=== PATIENT | female | born 1960 | race Caucasian/White ===

== ENCOUNTER 2023-05-11 05:09 | Emergency (ER) | payer OTHER ==
[~2023-05-11] VITALS: Ht 157.5 cm; Wt 109.1 kg
[2023-05-11 05:20] VITALS: BP 149/93; PULSE 77; RESP 20; TEMP 98.1
[2023-05-11 06:37] VITALS: O2SAT 98
[2023-05-11] MEDS ORDERED: METH-1182 PO (06:42)
[2023-05-11] MEDS ORDERED: IBUP-1456 PO (06:42)
[2023-05-11] MEDS: HYDROcodone-ACET 5/325MG TAB PO ONE (06:47)
[2023-05-11] MEDS: KETOROLAC TROMETH 60MG/2ML VIAL IM ONE (06:48)
== END 2023-05-11 07:12 | disposition home or self-care (01) ==
LOC: ER 05:09
DX: M50.10 Cervical disc disorder with radiculopathy, unspecified cervical region (principal); M62.838 Other muscle spasm; Z79.899 Other long term (current) drug therapy
CPT/HCPCS: 72040; 96372; 99283; J1885

== ENCOUNTER → 2023-06-01 | Outpatient (CLI) | payer OTHER ==
[~2023-06-01] MED LIST: IBUP-1456 PO; METH-1182 PO
[2023-06-01 09:11] LABS: Basophils # (auto) 0.1 10 ^3/uL (0-0.2); Basophils % (auto) 1.2 % (0.0-2.0); Eosinophils # (auto) 0.2 10 ^3/uL (0-0.8); Eosinophils % (auto) 2.5 % (0.0-7.0); Hematocrit 41.8 % (36.0-46.0); Hemoglobin 13.5 g/dL (12.2-16.2); Lymphocytes # (auto) 2.2 10 ^3/uL (0.4-5.4); Lymphocytes % (auto) 24.7 % (10.0-50.0); Mean Corpuscular Hemoglobin 28.3 pg (28.0-32.0); Mean Corpuscular Hgb Conc. 32.3 g/dL (32.0-36.0); Mean Corpuscular Volume 87.7 fL (80.0-100.0); Monocytes # (auto) 0.6 10 ^3/uL (0-1.3); Monocytes % (auto) 7.3 % (0.0-12.0); Neutrophils # (auto) 5.6 10 ^3/uL (1.6-8.6); Neutrophils % (auto) 64.3 % (37.0-80.0); Nucleated Red Blood Cells % 0.1 %; Red Blood Cells 4.77 10^6/uL (4.0-5.20); Red Cell Distribution Width 14.4 % (11.8-14.3); White Blood Cell 8.8 10^3/uL (4.4-10.8)
[2023-06-01 09:17] LABS: Urine Bacteria FEW /hpf (None Seen); Urine Blood Negative /uL (Negative); Urine Clarity Clear (Clear); Urine Color Light-Yellow (Yellow); Urine Hyaline Cast FEW /lpf (0 - 2); Urine Protein, UAD Negative (Negative); Urine Specific Gravity 1.019 (1.001-1.035); Urine Urobilinogen Normal (Negative); Urine WBC 2 /hpf (0 - 5); Urine pH 6.5 (5.0-9.0)
[2023-06-01 09:36] LABS: Alanine Aminotransferase 15 U/L (7-40); Albumin 4.4 g/dL (3.2-4.8); Alkaline Phosphatase 130 U/L (46-116); Anion Gap 5 (5-15); Aspartate Aminotransferase 16 U/L (13-40); BUN/Creatinine Ratio 16.2 (10.0-20.0); Blood Urea Nitrogen 12 mg/dL (9-23); Calcium 9.5 mg/dL (8.5-10.1); Carbon Dioxide 29 mmol/L (20-30); Chloride 107 mmol/L (98-107); Glucose 103 mg/dL (74-106); LDL Cholesterol 108 mg/dL (< 100); Potassium 4.2 mmol/L (3.5-5.1); Sodium 141 mmol/L (136-145); Triglycerides 105 mg/dL (< 150)
[2023-06-01 09:37] LABS: Bilirubin, Total 0.6 mg/dL (0.2-1.0); Cholesterol 185 mg/dL (< 200); HDL Cholesterol 61 mg/dL (40-59); Total Protein 7.4 g/dL (5.7-8.2)
== END | disposition home or self-care (01) ==
LOC: LAB 08:37
DX: Z12.11 Encounter for screening for malignant neoplasm of colon (principal); Z00.01 Encounter for general adult medical examination with abnormal findings; E78.5 Hyperlipidemia, unspecified; E55.9 Vitamin D deficiency, unspecified
CPT/HCPCS: 36415; 80053; 80061; 81001; 82306; 83036; 84443; 85025

== ENCOUNTER → 2023-06-08 | Outpatient (CLI) | payer OTHER | END | disposition home or self-care (01) | LOC: LAB 07:20 | DX: Z12.11 Encounter for screening for malignant neoplasm of colon (principal); Z00.01 Encounter for general adult medical examination with abnormal findings; E78.5 Hyperlipidemia, unspecified; E55.9 Vitamin D deficiency, unspecified | CPT/HCPCS: 82274 ==

== ENCOUNTER 2023-12-12 06:13 | Inpatient (IN) | payer OTHER ==
[2023-12-09 09:09] LABS: Basophils # (auto) 0.1 10 ^3/uL (0-0.2); Basophils % (auto) 1.5 % (0.0-2.0); Eosinophils # (auto) 0.1 10 ^3/uL (0-0.8); Eosinophils % (auto) 1.9 % (0.0-7.0); Hematocrit 43.4 % (36.0-46.0); Hemoglobin 14.2 g/dL (12.2-16.2); Lymphocytes # (auto) 1.4 10 ^3/uL (0.4-5.4); Lymphocytes % (auto) 17.6 % (10.0-50.0); Mean Corpuscular Hemoglobin 28.8 pg (28.0-32.0); Mean Corpuscular Hgb Conc. 32.8 g/dL (32.0-36.0); Mean Corpuscular Volume 87.9 fL (80.0-100.0); Monocytes # (auto) 0.6 10 ^3/uL (0-1.3); Monocytes % (auto) 7.3 % (0.0-12.0); Neutrophils # (auto) 5.6 10 ^3/uL (1.6-8.6); Neutrophils % (auto) 71.7 % (37.0-80.0); Platelet Count (auto) 263 10^3/uL (140-450); Red Blood Cells 4.93 10^6/uL (4.0-5.20); Red Cell Distribution Width 14.7 % (11.8-14.3); White Blood Cell 7.8 10^3/uL (4.4-10.8)
[2023-12-09 09:11] LABS: Urine Bacteria None Seen /hpf (None Seen)
[2023-12-09 09:25] LABS: Urine Blood Negative /uL (Negative); Urine Clarity Clear (Clear); Urine Color Light-Yellow (Yellow); Urine Protein, UAD Negative (Negative); Urine Specific Gravity 1.019 (1.001-1.035); Urine Urobilinogen Normal (Negative); Urine WBC 1 /hpf (0 - 5); Urine pH 7.5 (5.0-9.0)
[2023-12-09 09:30] LABS: INR 0.97 (0.9-1.15); Partial Thromboplastin Time 31.9 SEC (24.5-34.5); Prothrombin Time 10.3 sec (9.3-11.8)
[2023-12-09 10:07] LABS: Alanine Aminotransferase 15 U/L (7-40); Albumin 4.5 g/dL (3.2-4.8); Alkaline Phosphatase 107 U/L (46-116); Anion Gap 8 (5-15); BUN/Creatinine Ratio 17.3 (10.0-20.0); Blood Urea Nitrogen 13 mg/dL (9-23); Carbon Dioxide 28 mmol/L (20-31); Chloride 104 mmol/L (98-107); Glucose 107 mg/dL (74-106); Potassium 4.3 mmol/L (3.5-5.1); Sodium 140 mmol/L (136-145)
[2023-12-09 10:08] LABS: Bilirubin, Total 0.9 mg/dL (0.2-1.0); Total Protein 7.7 g/dL (5.7-8.2)
[2023-12-09 10:20] LABS: Aspartate Aminotransferase 12 U/L (13-40)
[~2023-12-12] VITALS: Ht 157.5 cm; Wt 122.7 kg
[2023-12-12] VITALS (10 sets, daily range): BP systolic 114–152; BP diastolic 57–81; PULSE 68–102; RESP 12–20; TEMP 97.5–98.7; O2SAT 92–97
[~2023-12-12 06:13] MED LIST changes: +CHOL20007 PO; +IBAN1TAB2 PO; -METH-1182 PO
[2023-12-12] MEDS: ACETAMINOPHEN IV 1000 MG/100ML (10MG/ML) IV ONE (06:45)
[2023-12-12] MEDS: CELECOXIB 100 MG CAP PO ONE (06:45)
[2023-12-12] MEDS: PREGABALIN CAPSULE 75 MG CAP PO ONE (06:45)
[2023-12-12] MEDS: LACTATED RINGER'S 1,000 ML IV SCH (07:15)
[2023-12-12] MEDS ORDERED: HYDROmorphone HCL 2 MG/ML VL/or syr IV PRN (07:15)
[2023-12-12] MEDS ORDERED: NITROGLYCERIN 0.4 MG SL TAB SL PRN (07:15)
[2023-12-12] MEDS ORDERED: HYDROcodone-ACET 5/325MG TAB PO PRN (07:15)
[2023-12-12] MEDS ORDERED: diphenhdrAMINE HCL 25 MG CAP PO PRN (07:15)
[2023-12-12] MEDS ORDERED: ceFAZolin 1GM/50ML 50 ML IV SCH (07:15)
[2023-12-12] MEDS ORDERED: MORPHINE SULFATE INJ 2 MG/ml SYRG IV PRN (07:15)
[2023-12-12] MEDS ORDERED: PROPOFOL 10 MG/ML 20 ML IV ONE ×5 (07:55→10:22)
[2023-12-12] MEDS ORDERED: GLYCOPYRROLATE 0.2 MG/ML 1ML VIAL ONE (07:55)
[2023-12-12] MEDS ORDERED: LIDOCAINE 1% INJ PF 5ML AMP ONE (07:56)
[2023-12-12] MEDS ORDERED: KETOROLAC TROMETH 30 MG/ML 1ML VIAL ONE (07:56)
[2023-12-12] MEDS ORDERED: DexAMETHasone SOD PHOS 10MG/1ML VIAL INJ ONE ×2 (07:56→08:38)
[2023-12-12] MEDS ORDERED: ONDANSETRON HCL 4 MG/2 ML VIAL ONE (07:56)
[2023-12-12] MEDS ORDERED: EPINEPHrine HCL 1 MG/1 ML AMP ONE (07:56)
[2023-12-12] MEDS ORDERED: KETAMINE 50mg/ML 1ml syringe ONE (07:57)
[2023-12-12] MEDS ORDERED: fentaNYL CITRATE 100 MCG/2 ML VL ONE (07:57)
[2023-12-12] MEDS: BUPIVACAINE 0.25% INJ 50ML VIAL ONE (07:58)
[2023-12-12] MEDS: VANCOMYCIN HCL 1000 MG VL XX ONE (07:59)
[2023-12-12] MEDS: CEFEPIME 1GM/ 50ML 50 ML IV ONE ×2 (08:00→09:49)
[2023-12-12] MEDS ORDERED: MORPHINE SULF PF 5 MG/10 ML VIAL ONE (08:04)
[2023-12-12] MEDS ORDERED: ESMOLOL HCL 10 ML IV ONE (09:28)
[2023-12-12] MEDS: ENOXAPARIN SOD 40 MG/0.4 ML SYRINGE SC SCH (09:45)
[2023-12-12] MEDS: TRANEXAMIC ACID 20 ML ONE (09:48)
[2023-12-12] MEDS: VANCOMYCIN HCL 1000 MG VL ONE (09:48)
[2023-12-12] MEDS: KETOROLAC TROMETH 30 MG/ML 1ML VIAL ONE (09:48)
[2023-12-12] MEDS: ceFAZolin 2 GM/D5W100ml 100 ML IV ONE (09:49)
[2023-12-12] MEDS ORDERED: ePHEDrine SULFATE 50 MG/ML AMP IV PRN (10:00)
[2023-12-12] MEDS ORDERED: NALOXONE HCL 0.4 MG/ML VIAL IV PRN (10:00)
[2023-12-12] MEDS ORDERED: hydrALAZINE HCL 20 MG/ML VL IV PRN ×2 (10:00→14:15)
[2023-12-12] MEDS ORDERED: fentaNYL CITRATE 100 MCG/2 ML VL IV PRN (10:00)
[2023-12-12] MEDS ORDERED: FLUMAZENIL 0.1 MG/ML INJ 10ML MDV IV PRN (10:00)
[2023-12-12] MEDS ORDERED: PATIENTS OWN MEDICATION (Cholecalciferol (Vitamin D3) 1 TAB) PO SCH (10:00)
[2023-12-12] MEDS: HYDROmorphone HCL 2 MG/ML VL/or syr IV PRN ×2 (10:11→21:45)
[2023-12-12] MEDS: ONDANSETRON HCL 4 MG/2 ML VIAL IV ONE (10:25)
[2023-12-12] MEDS: HYDROmorphone HCL 2 MG/ML VL/or syr ONE (10:26)
[2023-12-12] MEDS: DOCUSATE SOD 100 MG CAP PO SCH (10:36)
[2023-12-12] MEDS: oxyCODONE HCL 5MG TAB PO ONE (10:36)
[2023-12-12] MEDS: CHOLECALCIFEROL (VITD3) 1,000UNIT=25mCg TAB PO SCH (10:37)
--- NOTE | 2023-12-12 12:00 | DVH ---
CLINICAL INDICATION: S/P SURGERY TECHNIQUE: XY L KNEE 3V XRAY Comparison: None FINDINGS/IMPRESSION: There is no evidence of acute fracture or dislocation. Left total knee arthroplasty. The alignment is anatomical. There is no radiopaque foreign body.
[2023-12-12] MEDS: SODIUM CHLOR 0.9% PF (SALINE LOCK) 10ML VIAL/SYR IV SCH (14:00)
--- NOTE | 2023-12-12 14:16 | DVHHP2 ---
Review of Systems Allergies: Coded Allergies: Amoxicillin (Verified Allergy, Intermediate, Hives, 12/09/23) Cephalexin (Verified Allergy, Intermediate, Hives, 12/09/23) Codeine (Verified Allergy, Intermediate, Hives, 12/09/23) Penicillins (Verified Allergy, Intermediate, Hives, 12/09/23) Phenytoin (Verified Allergy, Intermediate, Hives, 12/09/23) Sulfa Antibiotics (Verified Allergy, Intermediate, Hives, 12/09/23) Tetanus Immune Globulin (Verified Allergy, Intermediate, Hives, 12/09/23) Medications Current Medications Medications Dose Ordered Sig/Tacho Route Start Time Stop Time Status Last Admin Dose Admin Patient Own Medication 1 tab DAILY PO 12/12/23 10:00 Cancel Lactated Ringer's 1,000 ml @ 100 mls/hr Q10H IV 12/12/23 07:15 Sodium Chloride 10 ml Q8HR IV 12/12/23 14:00 Acetaminophen/ Hydrocodone Bitart 1 tab Q4HP PRN PO 12/12/23 07:15 Hold Hydromorphone HCl 1 mg Q2HP PRN IV 12/12/23 07:15 Ondansetron HCl 4 mg Q6HP PRN IV 12/12/23 07:15 Docusate Sodium 100 mg Q12HR PO 12/12/23 10:00 12/12/23 10:36 100 MG Enoxaparin Sodium 40 mg DAILY SC 12/12/23 10:00 Nitroglycerin 0.4 mg Q5MINP PRN SL 12/12/23 07:15 Morphine Sulfate 2 mg Q30M PRN IV 12/12/23 07:15 Diphenhydramine HCl 25 mg Q6HP PRN PO 12/12/23 07:15 Cefepime HCl 50 ml @ 12.5 mls/hr DAILY IV 12/12/23 10:00 12/14/23 13:59 Cholecalciferol 2,000 unit DAILY PO 12/12/23 10:00 12/12/23 10:37 2,000 UNIT Cefazolin Sodium 50 ml @ 50 mls/hr Q6H IV 12/12/23 13:30 12/13/23 02:29 Exam Vital Signs Vital Signs Date Time Temp Pulse Resp B/P (MAP) Pulse Ox O2 Delivery O2 Flow Rate FiO2 12/12/23 12:10 97.5 70 18 152/81 (104) 94 97.5 12/12/23 12:07 Room Air 0 12/12/23 12:07 97 Labs/Xrays Labs Test 12/09/23 08:49 Range/Units White Blood Count 7.8 4.4-10.8 10^3/uL Red Blood Count 4.93 4.0-5.20 10^6/uL Hemoglobin 14.2 12.2-16.2 g/dL Hematocrit 43.4 36.0-46.0 % Mean Corpuscular Volume 87.9 80.0-100.0 fL Mean Corpuscular Hemoglobin 28.8 28.0-32.0 pg Mean Corpuscular Hemoglobin Concent 32.8 32.0-36.0 g/dL Red Cell Distribution Width 14.7 H 11.8-14.3 % Platelet Count 263 140-450 10^3/uL Mean Platelet Volume 8.2 6.9-10.8 fL Neutrophils (%) (Auto) 71.7 37.0-80.0 % Lymphocytes (%) (Auto) 17.6 10.0-50.0 % Monocytes (%) (Auto) 7.3 0.0-12.0 % Eosinophils (%) (Auto) 1.9 0.0-7.0 % Basophils (%) (Auto) 1.5 0.0-2.0 % Neutrophils # (Auto) 5.6 1.6-8.6 10 ^3/uL Lymphocytes # (Auto) 1.4 0.4-5.4 10 ^3/uL Monocytes # (Auto) 0.6 0-1.3 10 ^3/uL Eosinophils # (Auto) 0.1 0-0.8 10 ^3/uL Basophils # (Auto) 0.1 0-0.2 10 ^3/uL Nucleated Red Blood Cells 0.0 % Prothrombin Time 10.3 9.3-11.8 sec Prothrombin Time INR 0.97 0.9-1.15 Activated Partial Thromboplast Time 31.9 24.5-34.5 SEC Urine Color Light-yellow Yellow Urine Clarity Clear Clear Urine pH 7.5 5.0-9.0 Urine Specific [place] 1.019 1.001-1.035 Urine Protein Negative Negative Urine Ketones Negative Negative Urine Blood Negative Negative /uL Urine Nitrite Negative Negative Urine Bilirubin Negative Negative Urine Urobilinogen Normal Negative mg/dL Urine Leukocyte Esterase Negative Negative /uL Urine RBC <1 0 - 4 /hpf Urine WBC 1 0 - 5 /hpf Urine Squamous Epithelial Cells Few <5 /hpf Urine Bacteria None seen None Seen /hpf Urine Glucose Normal Normal mg/dL Sodium Level 140 136-145 mmol/L Potassium Level 4.3 3.5-5.1 mmol/L Chloride Level 104 98-107 mmol/L Carbon Dioxide Level 28 20-31 mmol/L Anion Gap 8 5-15 Blood Urea Nitrogen 13 9-23 mg/dL Creatinine 0.75 0.550-1.02 mg/dL Glomerular Filtration Rate Calc 88 >90 mL/min BUN/Creatinine Ratio 17.3 10.0-20.0 Serum Glucose 107 H 74-106 mg/dL Calcium Level 10.0 8.7-10.4 mg/dL Total Bilirubin 0.9 0.2-1.0 mg/dL Aspartate Amino Transferase (AST) 12 L 13-40 U/L Alanine Aminotransferase (ALT) 15 7-40 U/L Alkaline Phosphatase 107 46-116 U/L Total Protein 7.7 5.7-8.2 g/dL Albumin 4.5 3.2-4.8 g/dL Assessment/Plan Assessment/Plan see dictated note Plan discussed with: Other (rn) Date of Service: Dec 12, 2023 Billing Provider: ANITRA CALVERT MD Common Visit Codes: [id number] INP/OBS CARE (HIGH) ANITRA CALVERT MD Dec 12, 2023 14:16
--- NOTE | 2023-12-12 14:44 | DVHHP ---
ADMIT DATE: 12/12/2023 HISTORY OF PRESENT ILLNESS: The patient is a 63-year-old lady who was admitted after she underwent surgery for DJD of the left knee. The patient at this time denies any significant pain. No chest pain or shortness of breath. No nausea or vomiting. REVIEW OF SYSTEMS: Review of rest of systems are otherwise currently negative. PAST MEDICAL HISTORY: Unclear, but appears to be primarily for osteoporosis. ALLERGIES: Several and listed in the records. SOCIAL HISTORY: The patient lives at home. FAMILY HISTORY: Negative. PHYSICAL EXAMINATION: GENERAL: The patient is asleep, arousable. VITAL SIGNS: Temperature of 97.5, pulse 70 per minute, blood pressure 152/81. SHEENT: Unremarkable. NECK: There is no JVD, no pedal edema. LUNGS: Equal bilaterally. No added sounds. CARDIOVASCULAR: S1, S2 is regular, no murmurs. ABDOMEN: Soft. There is no organomegaly. NEUROLOGIC: Nonfocal. MUSCULOSKELETAL: The left knee is in a dressing. ASSESSMENT AND PLAN: * Morbid obesity. * Questionable hypertension for which she will be placed on p.r.n. hydralazine. * Status post left knee arthroplasty for degenerative joint disease of the knee for which she will be placed on pain medications and physical therapy. MD PARAG Llanos/PRINCESS TID: [id number] RECEIPT: [id number]
[2023-12-12] MEDS: ceFAZolin 1GM/50ML 50 ML IV SCH (16:55)
[2023-12-13 01:00] VITALS: BP 106/61; PULSE 68; RESP 20; TEMP 97.6; O2SAT 92
[2023-12-13 05:00] VITALS: BP 103/55; PULSE 74; RESP 20; TEMP 97.8; O2SAT 93
[2023-12-13 06:06] LABS: Basophils # (auto) 0 10 ^3/uL (0-0.2); Basophils % (auto) 0.1 % (0.0-2.0); Eosinophils # (auto) 0 10 ^3/uL (0-0.8); Hematocrit 36.6 % (36.0-46.0); Hemoglobin 11.8 g/dL (12.2-16.2); Lymphocytes # (auto) 1.2 10 ^3/uL (0.4-5.4); Lymphocytes % (auto) 10.2 % (10.0-50.0); Mean Corpuscular Hemoglobin 28.5 pg (28.0-32.0); Mean Corpuscular Hgb Conc. 32.4 g/dL (32.0-36.0); Monocytes % (auto) 8.1 % (0.0-12.0); Neutrophils # (auto) 9.9 10 ^3/uL (1.6-8.6); Neutrophils % (auto) 81.6 % (37.0-80.0); Nucleated Red Blood Cells % 0.1 %; Platelet Count (auto) 258 10^3/uL (140-450); Red Blood Cells 4.16 10^6/uL (4.0-5.20); White Blood Cell 12.1 10^3/uL (4.4-10.8)
[2023-12-13 06:18] LABS: Alanine Aminotransferase 14 U/L (7-40); Albumin 3.6 g/dL (3.2-4.8); Alkaline Phosphatase 95 U/L (46-116); Anion Gap 8 (5-15); Aspartate Aminotransferase 13 U/L (13-40); BUN/Creatinine Ratio 19.2 (10.0-20.0); Bilirubin, Total 0.4 mg/dL (0.2-1.0); Blood Urea Nitrogen 15 mg/dL (9-23); Calcium 9.1 mg/dL (8.7-10.4); Carbon Dioxide 24 mmol/L (20-31); Chloride 105 mmol/L (98-107); Glucose 177 mg/dL (74-106); Potassium 4.3 mmol/L (3.5-5.1); Sodium 137 mmol/L (136-145)
--- NOTE | 2023-12-13 07:46 | DVHPN2 ---
Progress Note Date Seen: Dec 13, 2023 Medical Necessity Reason Pt with a Central, PICC or Fol: No Subjective Patient reports: No new complaints Objective vital signs Vital Sign Date Time Temp Pulse Resp B/P (MAP) Pulse Ox O2 Delivery O2 Flow Rate FiO2 12/13/23 05:00 97.8 74 20 103/55 (71) 93 97.8 12/12/23 20:00 Room Air* 0 21 Total Intake and Output 12/12/23 12/12/23 12/13/23 15:00 23:00 07:00 Intake Total 841 ml 1150 ml Output Total 0 ml Balance 0 ml 841 ml 1150 ml medications Current Medications Medications Dose Ordered Sig/Tacho Route Start Time Stop Time Status Last Admin Dose Admin Patient Own Medication 1 tab DAILY PO 12/12/23 10:00 Cancel Lactated Ringer's 1,000 ml @ 100 mls/hr Q10H IV 12/12/23 07:15 12/13/23 03:25 100 MLS/HR Sodium Chloride 10 ml Q8HR IV 12/12/23 14:00 12/13/23 06:33 10 ML Acetaminophen/ Hydrocodone Bitart 1 tab Q4HP PRN PO 12/12/23 07:15 Hold Ondansetron HCl 4 mg Q6HP PRN IV 12/12/23 07:15 Docusate Sodium 100 mg Q12HR PO 12/12/23 10:00 12/12/23 21:13 100 MG Enoxaparin Sodium 40 mg DAILY SC 12/12/23 10:00 Nitroglycerin 0.4 mg Q5MINP PRN SL 12/12/23 07:15 Morphine Sulfate 2 mg Q30M PRN IV 12/12/23 07:15 Diphenhydramine HCl 25 mg Q6HP PRN PO 12/12/23 07:15 Cefepime HCl 50 ml @ 12.5 mls/hr DAILY IV 12/12/23 10:00 12/14/23 13:59 Cholecalciferol 2,000 unit DAILY PO 12/12/23 10:00 12/12/23 10:37 2,000 UNIT Hydromorphone HCl 1 mg Q3HP PRN IV 12/12/23 14:30 12/12/23 21:45 1 MG Hydralazine HCl 10 mg Q6HP PRN IV 12/12/23 14:15 Examination: GENERAL:Normal, MSK:Abnormal (NADINE dressing intact) laboratory and microbiology Laboratory Tests 12/13/23 04:45 Test 12/13/23 04:45 Range/Units Serum Glucose 177 H 74-106 mg/dL Problem List/Assessment/Plan Problem List/Assessment/Plan 63 year old female who is s/p Left TKA POD 1 1. Pain control 2. DVT ppx 3. CPM as ordered 4. Physical therapy 5. WBAT LLE with use of walker Plan discussed with: Patient Date of Service: Dec 13, 2023 Billing Provider: RENO BEAR MD Common Visit Codes: NOT BILLABLE ANDRE BUENO NP Dec 13, 2023 07:46
[2023-12-13] MEDS: CEFEPIME 1GM/ 50ML 50 ML IV SCH (08:40)
[2023-12-13] MEDS: ONDANSETRON HCL 4 MG/2 ML VIAL IV PRN (08:41)
[2023-12-13 09:00] VITALS: BP 113/54; PULSE 70; RESP 19; TEMP 98.1; O2SAT 94
--- NOTE | 2023-12-13 11:53 | DVHPN2 ---
Progress Note Date Seen: Dec 13, 2023 Medical Necessity Reason Pt with a Central, PICC or Fol: No Subjective Patient reports: No new complaints Review of Systems: HEENT:Normal, CVS:Normal, RESPIRATORY:Normal, GI:Normal, :Normal, MSK:Normal, NEURO:Normal Objective vital signs Vital Sign Date Time Temp Pulse Resp B/P (MAP) Pulse Ox O2 Delivery O2 Flow Rate FiO2 12/13/23 09:00 98.1 70 19 113/54 (73) 94 98.1 12/13/23 08:00 Room Air* 0 21 Total Intake and Output 12/12/23 12/12/23 12/13/23 15:00 23:00 07:00 Intake Total 841 ml 1150 ml Output Total 0 ml Balance 0 ml 841 ml 1150 ml medications Current Medications Medications Dose Ordered Sig/Tacho Route Start Time Stop Time Status Last Admin Dose Admin Patient Own Medication 1 tab DAILY PO 12/12/23 10:00 Cancel Lactated Ringer's 1,000 ml @ 100 mls/hr Q10H IV 12/12/23 07:15 12/13/23 03:25 100 MLS/HR Sodium Chloride 10 ml Q8HR IV 12/12/23 14:00 12/13/23 06:33 10 ML Acetaminophen/ Hydrocodone Bitart 1 tab Q4HP PRN PO 12/12/23 07:15 Hold Ondansetron HCl 4 mg Q6HP PRN IV 12/12/23 07:15 12/13/23 08:41 4 MG Docusate Sodium 100 mg Q12HR PO 12/12/23 10:00 12/13/23 08:39 100 MG Enoxaparin Sodium 40 mg DAILY SC 12/12/23 10:00 12/13/23 08:39 40 MG Nitroglycerin 0.4 mg Q5MINP PRN SL 12/12/23 07:15 Morphine Sulfate 2 mg Q30M PRN IV 12/12/23 07:15 Diphenhydramine HCl 25 mg Q6HP PRN PO 12/12/23 07:15 Cefepime HCl 50 ml @ 12.5 mls/hr DAILY IV 12/12/23 10:00 12/14/23 13:59 12/13/23 08:40 12.5 MLS/HR Cholecalciferol 2,000 unit DAILY PO 12/12/23 10:00 12/13/23 08:39 2,000 UNIT Hydromorphone HCl 1 mg Q3HP PRN IV 12/12/23 14:30 12/13/23 08:41 1 MG Hydralazine HCl 10 mg Q6HP PRN IV 12/12/23 14:15 Examination: GENERAL:Normal, HEENT:Normal, NECK:Normal, LUNGS:Normal, CVS:Normal, ABDOMEN:Normal, MSK:Normal, MSK:Abnormal (left knee dressing), SKIN:Normal, NEURO:Normal, :Normal laboratory and microbiology Laboratory Tests 12/13/23 04:45 Test 12/13/23 04:45 Range/Units Serum Glucose 177 H 74-106 mg/dL Problem List/Assessment/Plan Problem List/Assessment/Plan * Morbid obesity. * Questionable hypertension for which she will be placed on p.r.n. hydralazine. * Status post left knee arthroplasty for degenerative joint disease of the knee for which she will be placed on pain medications and physical therapy. advanced care planning-full code- time spent- 19 mins Plan discussed with: Patient My Orders My Orders Orders - ANITRA CALVERT MD Procedure Category Date Status Time Hydromorphone PHA 12/12/23 In Process Injection (Dilaudid 14:30 Hydralazine Injection PHA 12/12/23 In Process (Apresoline Inject 14:15 Lactated Ringers 1000 PHA 12/13/23 Verified mL 12:00 Date of Service: Dec 13, 2023 Billing Provider: ANITRA CALVERT MD Common Visit Codes: [id number] INP/OBS CARE(HIGH) Secondary Visit Codes: [id number] CARE PLAN 30 MINUTES ANITRA CALVERT MD Dec 13, 2023 11:52
[2023-12-13] MEDS: LACTATED RINGER'S 1,000 ML IV SCH (12:00)
[2023-12-13 13:00] VITALS: BP 106/52; PULSE 77; RESP 17; TEMP 97.9; O2SAT 94
[2023-12-13 16:49] VITALS: BP 100/53; PULSE 84; RESP 19; TEMP 98.5; O2SAT 92
[2023-12-13 21:00] VITALS: BP 112/55; PULSE 83; RESP 18; TEMP 99.5; O2SAT 94
[2023-12-14] VITALS (7 sets, daily range): BP systolic 116–155; BP diastolic 58–72; PULSE 73–94; RESP 18–21; TEMP 98.4–99.5; O2SAT 90–97
[2023-12-14 06:39] LABS: Hematocrit 34.8 % (36.0-46.0); Hemoglobin 11.5 g/dL (12.2-16.2)
--- NOTE | 2023-12-14 07:55 | DVHPN2 ---
Progress Note Date Seen: Dec 14, 2023 Medical Necessity Reason Pt with a Central, PICC or Fol: No Objective vital signs Vital Sign Date Time Temp Pulse Resp B/P (MAP) Pulse Ox O2 Delivery O2 Flow Rate FiO2 12/14/23 05:00 98.4 84 18 116/58 (77) 90 98.4 12/13/23 20:00 Room Air* 0 21 Total Intake and Output 12/13/23 12/13/23 12/14/23 15:00 23:00 07:00 Intake Total 740 ml 1980 ml Output Total 800 ml Balance 740 ml 1180 ml medications Current Medications Medications Dose Ordered Sig/Tacho Route Start Time Stop Time Status Last Admin Dose Admin Patient Own Medication 1 tab DAILY PO 12/12/23 10:00 Cancel Sodium Chloride 10 ml Q8HR IV 12/12/23 14:00 12/14/23 05:40 10 ML Acetaminophen/ Hydrocodone Bitart 1 tab Q4HP PRN PO 12/12/23 07:15 Hold Ondansetron HCl 4 mg Q6HP PRN IV 12/12/23 07:15 12/13/23 08:41 4 MG Docusate Sodium 100 mg Q12HR PO 12/12/23 10:00 12/13/23 21:36 100 MG Enoxaparin Sodium 40 mg DAILY SC 12/12/23 10:00 12/13/23 08:39 40 MG Nitroglycerin 0.4 mg Q5MINP PRN SL 12/12/23 07:15 Morphine Sulfate 2 mg Q30M PRN IV 12/12/23 07:15 Diphenhydramine HCl 25 mg Q6HP PRN PO 12/12/23 07:15 Cefepime HCl 50 ml @ 12.5 mls/hr DAILY IV 12/12/23 10:00 12/14/23 13:59 12/13/23 08:40 12.5 MLS/HR Cholecalciferol 2,000 unit DAILY PO 12/12/23 10:00 12/13/23 08:39 2,000 UNIT Hydromorphone HCl 1 mg Q3HP PRN IV 12/12/23 14:30 12/14/23 04:08 1 MG Hydralazine HCl 10 mg Q6HP PRN IV 12/12/23 14:15 Lactated Ringer's 1,000 ml @ 60 mls/hr [id number] IV 12/13/23 12:00 12/14/23 05:36 60 MLS/HR Examination: GENERAL:Normal, MSK:Abnormal laboratory and microbiology Laboratory Tests 12/14/23 05:05 12/13/23 04:45 Test 12/13/23 04:45 Range/Units Serum Glucose 177 H 74-106 mg/dL Problem List/Assessment/Plan Problem List/Assessment/Plan 63 year old female who is s/p Left TKA POD 2 1. Pain control 2. DVT ppx 3. CPM as ordered 4. Physical therapy 5. WBAT LLE with use of walker 6. follow up in [address] Damon at [facility] ortho clinic as scheduled 7. clear for discharge from orthopedic standpoint with the following discharge recommendations: At Home Instructions Wound Care 1. You will likely have a gel-type dressing over your wound, you may keep this on for 7-14 days after leaving the hospital unless it becomes soiled or your skin becomes irritated. If a wound vac dressing is placed on your knee this is to be left in place for one week and will be changed as needed. After your remove the dressing or wound vac, the home health nurse may place clean dry dressing over your wound. Keep wound covered, clean and dry for two weeks. 2. [place] will be removed during your initial post-op visit. If you have concerns about our wound, please call the office immediately. 3. If there is drainage from your wound, change the dressing daily until it stops. If drainage lasts more than 10 days, call our office. 4. Low grade (up to 100 degrees) fever is common for the first week after surgery. You should take your temperature daily. If you have fevers of 101 or more, please call the office. Medication Management 1. You will be discharged with pain medication, a blood thinner (unless you were previously on a blood thinner prior to surgery) and stool softener. Please follow the instructions regarding these medications as provided by your nurse at the hospital upon discharge. 2. Blood clots in the leg are a known complication of surgery. It is very important that you take the medication to protect against clots. Depending on what you are discharged on typically it is Lovenox 40mg daily for 2 weeks or Aspirin 325mg twice daily for 4 weeks. After you finish this, you should then take baby Aspirin (81mg) for 2 weeks. 3. You should restart all of your prescription medications once discharged unless specifically instructed otherwise. 4. Herbal supplements may be restarted 2 weeks after surgery. 5. If you have been given Coumadin as a blood thinner, please follow up with your regional truck driver during the first two weeks after surgery to review medications and overall medical well-being. 6. Please note that narcotic pain medication may cause constipation. Please remember to take stool softeners (Colace) when using narcotics to help reduce the change of constipation. You should not use alcohol together with narcotic medication. Activity 1. You can bear as much weight as you tolerate on your knee unless specifically instructed otherwise. You may use the walking aid which you were discharged with and switch to a cane whenever you feel comfortable doing so. You should use an assistive device until you can walk comfortably without it. Keep in mind that every patient moves at their own speed of recovery so take your time. 2. A physical therapist will visit you at home. 3. Use CPM machine as instructed 4. High impact activity such as jumping, aerobics, tennis, and skiing are not permitted during the first 3 months after surgery. These activities can contribute to accelerated wear and should be done with caution after this time. Discuss this with your surgeon if you have questions. 5. Although a bath or whirlpool is NOT permitted during the first 2-3 weeks, you may shower as soon as you get home from the hospital provided there is no wound drainage. Place a dressing or covering over the wound when you shower. 6. Swimming is not permitted until the wound is healed, which typically occurs approximately 3-4 weeks after surgery. [facility] [place] Instructions 1. Driving is not permitted within the first 2 weeks. 2. Your first postoperative visit will take place 2 weeks after discharge. Please call the office once you are home from the hospital to arrange this appointment. 3. Antibiotic preventative treatment is required before dental or other invasive procedures. Please ask your surgeon about this at your first postoperative visit. If you experience chest pain, shortness of breath or severe painful calf swelling, go to the nearest emergency room to be evaluated. Please call our office once your situation is stabilized. Plan discussed with: Patient Date of Service: Dec 14, 2023 Billing Provider: RENO DAMON MD Common Visit Codes: NOT BILLABLE ANDRE BUENO NP Dec 14, 2023 07:55
--- NOTE | 2023-12-14 12:26 | DVHDS2 ---
Discharge Summary Date of Admission Dec 12, 2023 at 07:02 Date of Discharge: Dec 14, 2023 Labs/Diagnostic Data: Laboratory Results Test 12/14/23 05:05 12/13/23 04:45 12/09/23 08:49 Hemoglobin 11.5 g/dL (12.2-16.2) Hematocrit 34.8 % (36.0-46.0) White Blood Count 12.1 10^3/uL (4.4-10.8) Red Blood Count 4.16 10^6/uL (4.0-5.20) Mean Corpuscular Volume 88.0 fL (80.0-100.0) Mean Corpuscular Hemoglobin 28.5 pg (28.0-32.0) Mean Corpuscular Hemoglobin Concent 32.4 g/dL (32.0-36.0) Red Cell Distribution Width 14.0 % (11.8-14.3) Platelet Count 258 10^3/uL (140-450) Mean Platelet Volume 9.1 fL (6.9-10.8) Neutrophils (%) (Auto) 81.6 % (37.0-80.0) Lymphocytes (%) (Auto) 10.2 % (10.0-50.0) Monocytes (%) (Auto) 8.1 % (0.0-12.0) Eosinophils (%) (Auto) 0.0 % (0.0-7.0) Basophils (%) (Auto) 0.1 % (0.0-2.0) Neutrophils # (Auto) 9.9 10 ^3/uL (1.6-8.6) Lymphocytes # (Auto) 1.2 10 ^3/uL (0.4-5.4) Monocytes # (Auto) 1.0 10 ^3/uL (0-1.3) Eosinophils # (Auto) 0 10 ^3/uL (0-0.8) Basophils # (Auto) 0 10 ^3/uL (0-0.2) Nucleated Red Blood Cells 0.1 % Sodium Level 137 mmol/L (136-145) Potassium Level 4.3 mmol/L (3.5-5.1) Chloride Level 105 mmol/L (98-107) Carbon Dioxide Level 24 mmol/L (20-31) Anion Gap 8 (5-15) Blood Urea Nitrogen 15 mg/dL (9-23) Creatinine 0.78 mg/dL (0.550-1.02) Glomerular Filtration Rate Calc 84 mL/min (>90) BUN/Creatinine Ratio 19.2 (10.0-20.0) Serum Glucose 177 mg/dL (74-106) Calcium Level 9.1 mg/dL (8.7-10.4) Total Bilirubin 0.4 mg/dL (0.2-1.0) Aspartate Amino Transferase (AST) 13 U/L (13-40) Alanine Aminotransferase (ALT) 14 U/L (7-40) Alkaline Phosphatase 95 U/L (46-116) Total Protein 6.0 g/dL (5.7-8.2) Albumin 3.6 g/dL (3.2-4.8) Prothrombin Time 10.3 sec (9.3-11.8) Prothrombin Time INR 0.97 (0.9-1.15) Activated Partial Thromboplast Time 31.9 SEC (24.5-34.5) Urine Color Light-yellow (Yellow) Urine Clarity Clear (Clear) Urine pH 7.5 (5.0-9.0) Urine Specific [place] 1.019 (1.001-1.035) Urine Protein Negative (Negative) Urine Ketones Negative (Negative) Urine Blood Negative /uL (Negative) Urine Nitrite Negative (Negative) Urine Bilirubin Negative (Negative) Urine Urobilinogen Normal mg/dL (Negative) Urine Leukocyte Esterase Negative /uL (Negative) Urine RBC <1 /hpf (0 - 4) Urine WBC 1 /hpf (0 - 5) Urine Squamous Epithelial Cells Few /hpf (<5) Urine Bacteria None seen /hpf (None Seen) Urine Glucose Normal mg/dL (Normal) Other Laboratory Tests 12/14/23 05:05 12/13/23 04:45 Brief Hx & Hospital Course: SEE DICTATED NOTE Condition at Discharge: Good Final Diagnosis/Problems List LEFT KNEE SURGERY Discharge Disposition: Home with Health Services Discharge Instruct/Medications Diet: Cardiac 2g Na,low cholest Activity: No Restrictions, As Tolerated Follow Up/Referral: FU WITH ORTHO IN 2 WKS Medications: RESUME HOME MEDS REST MEDS PER ORTHO Discharge Statement: "Patient was advised to return to the ER or call 911 if any headaches, dizziness, shortness of breath, chest pain, abdominal pain, bleeding, fevers, or worsening of medical condition. Patient was counseled about treatment plan, medications, possible side effects, patientverbalized understanding. All questions were answered to the best of my ability. This discharge took greater then 30 minutes in planning, reviewing documentation, counseling the patient, and discussing with other team members." ASSESSMENT ASSESSMENT Assessment LEFT KNEE SURGERY Date of Service: Dec 14, 2023 Billing Provider: ANITRA CALVERT MD Common Visit Codes: [id number] DISCH DAY >30min ANITRA CALVERT MD Dec 14, 2023 12:26
--- NOTE | 2023-12-14 12:58 | DVHDS ---
DATE OF DISCHARGE: 12/14/2023 The patient is a 63-year-old lady who was admitted after she underwent surgery on the left knee for DJD of the knee. HOSPITAL COURSE: The patient did well postoperatively. She has been ambulating with physical therapy. Hemoglobin has been stable. The patient has now been cleared for discharge. She is to resume her home medications and have home physical therapy. The rest of the medications are as per Orthopedic. She will follow up with Orthopedic and the primary care. FINAL DIAGNOSES: * Morbid obesity. * Questionable hypertension. * Status post left knee surgery for degenerative joint disease of the knee. Time spent in discharge planning and review of plan with the patient and nursing was 36 minutes. MD PARAG Llanos/RACHID TID: [id number] RECEIPT: [id number]
--- NOTE | 2023-12-15 06:00 | DVHOP2 ---
Operative Report - 2 Report Details Date: 12/12/23 Preop Diagnosis: Left knee osteoarthritis, morbid obesity BMI 50 Postop Diagnosis: Left knee osteoarthritis, morbid obesity BMI 50 Surgeon: Cecilio Jeffery MD/ Jay Bear MD Anesthesiologist: Jordan CHAUHAN Anesthesia: Regional Implant: [employer] see implant log Consent: The patient was informed of the risks and benefits of the procedure. These include but are not limited to complications of anesthesia, postoperative infection, incomplete relief of symptoms, recurrence of symptoms, damage to blood vessels, nerves and tendons, deep venous thrombosis, pulmonary embolism and possible need for repeat surgery in the future. Estimated Blood Loss: 50 cc Name of Procedure Performed Left total knee arthroplasty, computer navigation, medically complex with BMI being 50 Procedure Details Procedure Details: FINDINGS: degenerative disease with grade IV changes with valgus deformity INDICATION: This patient has failed non-operative treatments for knee arthritis and is now indicated for a total knee replacement. Preoperatively in the waiting area as well as in the office, I had a long discussion with the patient regarding the plan, the expected outcome, the risks, benefits, and alternatives of surgery. The risks include, but are not limited to, infection (which may require future surgery and removal of implants) , bleeding (which may require a transfusion), damage to nerves, arteries, veins, tendons, muscles and other adjacent structures. Also discussed the possibilities of intraoperative fractures, implant loosening, heterotopic bone formation, and revision for va riety of reasons, and medical complications etc. This was discussed at length and consent has been obtained. DESCRIPTION OF PROCEDURE: In the preoperative holding area, the consent was reviewed and the appropriate extremity was verified by the patient and marked with my initials. The patient was then transferred to the operating theatre. Appropriate anesthesia was induced. All bony prominences were well padded. A time out was performed verifying the side and site of surgery according to standard protocol. Preoperative antibiotics were given 10 minutes prior to tourniquet inflation. Tranexamic was given. A well padded thigh tourniquet was applied. The extremity was then prepped and draped in the usual sterile fashion. The extremity was exsanguinated and the tourniquet was inflated. We then made a mid-line incision, which we continued to the underlying capsular tissue. We performed a medial parapatellar arthrotomy. We periosteally exposed the proximal tibia, excised the anterior fat pad and synovium from the distal aspect of the femur. We then subluxed the patella and brought the knee up into flexion. The lateral meniscus, ACL, and PCL were released. We used the appropriate guide with attached computer navigation to secure the distal femoral cutting block to the femur with pins and completed the distal femoral cut in 0 degrees to the mechanical axis with an oscillating saw. We removed the distal femoral cutting block and turned our attention to the tibia. We used the extramedullary tibial alignment guide with computer navigation to secure the proximal tibial cutting block to the tibia with pins, setting it for a 1mm cut from the more involved side, medially and completed the proximal tibial cut. We then used the spacer block and alignment raul to check the varus- valgus angle of our cuts and the extension gap. We marked our femoral anatomy, including Trinity's line and the epicondylar axis. Using that as a rotational guide, we used the sizing guide to size our femur properly, using a stylus to ensure there would be no notching. We then used the AP cutting guide to make our anterior and posterior cuts and chamfer cuts with an oscillating saw. We again checked the flexion and extension gaps and coronal balancing. Next, we sized our tibia and secured a baseplate with appropriate rotation with pins. We placed a trial femur in position and completed preparation of the notch with reamers and box osteotome and placed a trial notch in position. We used trials to choose our liner size and then placed the liner in place and reduced the knee . We then placed a trial button in place. At this point, we checked our seven parameters: 1) Limb alignment 2) Extension 3) Flexion against gravity 4) Flexion stability 5) Varus-valgus balancing 6) Component rotation 7) Patella tracking We were satisfied with these and removed all trials with the exception of the baseplate. We completed preparation of the tibia with the appropriate reamer and keel impactor and then removed the baseplate. We placed a bone plug in the distal femur and then irrigated and dried all bony surfaces and injected our pain cocktail. Cement with antibiotics was hand-mixed on the back table. We thumb impacted cement into the proximal tibia, distal femur impacted our tibial , femoral and patellar components into position. Excess cement was removed with curettes. We impacted our liner and reduced the knee and held it with axial loading until all cement hardened. We did a selene-articular cocktail block Once all cement had hardened, we brought the knee back up into flexion and used an osteotome to remove excess cement. We released the tourniquet and achieved hemostasis where necessary. A dilute betadine solution (17.5mL in 500mL saline) was used to wash the joint and left to sit for 3 minutes. This was then irrigated out with copious amounts of pulse lavage. We sprinkled 1g vancomycin powder below the fascia and 1g above the fascia. We copiously irrigated the knee. We re-checked our seven parameters. We closed our capsular incision with a PDS style suture. We irrigated further. We closed the subcutaneous tissue with Vicryl suture and re-approximated the skin with Sally. We verified all lower extremity compartments were soft and compressible and that we had intact d istal pulses. We wrapped the extremity in sterile Webril and faisal bandage. The patient was transferred to the recovery room in stable condition. Condition Good Disposition Home with Health Services JAY BEAR MD Dec 15, 2023 05:59
== END 2023-12-14 17:08 | disposition home or self-care (01) | DRG 470 ==
LOC: SUR 06:13 → OVERFLOW 07:02 → EAST 12:09
PROVIDERS: ADMIT Orthopaedic Surgery Adult Reconstructive Orthopaedic Surgery; ATTEND Internal Medicine
PROC: 0SRD0J9 Replacement of Left Knee Joint with Synthetic Substitute, Cemented, Open Approach (ICD-10-PCS; principal; 2023-12-12 07:13)
DX: M17.12 Unilateral primary osteoarthritis, left knee (principal); Z68.42 Body mass index [BMI] 45.0-49.9, adult; E66.01 Morbid (severe) obesity due to excess calories; I10 Essential (primary) hypertension; M21.00 Valgus deformity, not elsewhere classified, unspecified site; Z88.7 Allergy status to serum and vaccine; Z79.899 Other long term (current) drug therapy
CPT/HCPCS: 36415; 73562; 80053; 81001; 85014; 85018; 85025; 85610; 85730; 86850; 86900; 86901; 97110; 97116; 97163; 97530; C1776; G0378; J0131; J0171; J1100; J1885; J2405; J2704; J3490

== ENCOUNTER → 2024-02-13 | Outpatient (CLI) | payer OTHER ==
[2024-02-13 07:03] LABS: Urine Bacteria None Seen /hpf (None Seen)
[2024-02-13 07:32] LABS: Urine Blood Negative /uL (Negative); Urine Clarity Clear (Clear); Urine Color Yellow (Yellow); Urine Mucus FEW (None Seen); Urine Protein, UAD Negative (Negative); Urine Squamous Epithelial Cell FEW /hpf (<5); Urine Urobilinogen Normal (Negative); Urine WBC 3 /hpf (0 - 5)
[2024-02-13 08:01] LABS: Alanine Aminotransferase 11 U/L (7-40); Alkaline Phosphatase 97 U/L (46-116); Anion Gap 7 (5-15); BUN/Creatinine Ratio 16.5 (10.0-20.0); Blood Urea Nitrogen 13 mg/dL (9-23); Carbon Dioxide 27 mmol/L (20-31); Chloride 106 mmol/L (98-107); Potassium 4.5 mmol/L (3.5-5.1); Sodium 140 mmol/L (136-145); Triglycerides 147 mg/dL (< 150)
[2024-02-13 08:02] LABS: Albumin 4.2 g/dL (3.2-4.8); Aspartate Aminotransferase 16 U/L (13-40); Cholesterol 198 mg/dL (< 200); HDL Cholesterol 54 mg/dL (40-59)
[2024-02-13 08:03] LABS: Bilirubin, Total 0.7 mg/dL (0.2-1.0); Total Protein 7.1 g/dL (5.7-8.2)
[2024-02-13 08:04] LABS: Basophils # (auto) 0 10 ^3/uL (0-0.2); Basophils % (auto) 0.9 % (0.0-2.0); Eosinophils # (auto) 0.2 10 ^3/uL (0-0.8); Eosinophils % (auto) 2.9 % (0.0-7.0); Hematocrit 40.1 % (36.0-46.0); Hemoglobin 13.3 g/dL (12.2-16.2); Lymphocytes # (auto) 1.5 10 ^3/uL (0.4-5.4); Lymphocytes % (auto) 28.1 % (10.0-50.0); Mean Corpuscular Hemoglobin 28.5 pg (28.0-32.0); Mean Corpuscular Hgb Conc. 33.2 g/dL (32.0-36.0); Mean Corpuscular Volume 85.9 fL (80.0-100.0); Monocytes # (auto) 0.5 10 ^3/uL (0-1.3); Monocytes % (auto) 8.8 % (0.0-12.0); Neutrophils # (auto) 3.2 10 ^3/uL (1.6-8.6); Neutrophils % (auto) 59.3 % (37.0-80.0); Platelet Count (auto) 258 10^3/uL (140-450); Red Blood Cells 4.67 10^6/uL (4.0-5.20); Red Cell Distribution Width 14.5 % (11.8-14.3); White Blood Cell 5.4 10^3/uL (4.4-10.8)
[2024-02-13 08:05] LABS: Glucose 115 mg/dL (74-106); LDL Cholesterol 128 mg/dL (< 100)
== END | disposition home or self-care (01) ==
LOC: LAB 06:38
DX: I10 Essential (primary) hypertension (principal); D64.9 Anemia, unspecified; E78.5 Hyperlipidemia, unspecified; E55.9 Vitamin D deficiency, unspecified
CPT/HCPCS: 36415; 80053; 80061; 81001; 82306; 83036; 84443; 85025

== ENCOUNTER → 2024-08-07 | Outpatient (CLI) | payer OTHER ==
[2024-08-07 06:32] LABS: Hematocrit 39.9 % (36.0-46.0); Hemoglobin 13.4 g/dL (12.2-16.2); Mean Corpuscular Hemoglobin 28.4 pg (28.0-32.0); Mean Corpuscular Volume 84.8 fL (80.0-100.0); Nucleated Red Blood Cells % 0.1 %
[2024-08-07 07:17] LABS: Alanine Aminotransferase 11 U/L (7-40); Albumin 4.3 g/dL (3.2-4.8); Alkaline Phosphatase 99 U/L (46-116); Anion Gap 8 (5-15); BUN/Creatinine Ratio 18.3 (10.0-20.0); Bilirubin, Total 0.6 mg/dL (0.2-1.0); Blood Urea Nitrogen 15 mg/dL (9-23); Calcium 9.8 mg/dL (8.7-10.4); Carbon Dioxide 28 mmol/L (20-31); Chloride 106 mmol/L (98-107); Cholesterol 190 mg/dL (< 200); Potassium 4.2 mmol/L (3.5-5.1); Sodium 142 mmol/L (136-145); Total Protein 7.1 g/dL (5.7-8.2); Triglycerides 105 mg/dL (< 150)
[2024-08-07 07:18] LABS: Glucose 106 mg/dL (74-106); HDL Cholesterol 62 mg/dL (40-59)
[2024-08-07 07:21] LABS: Urine Protein, UAD Negative (Negative)
== END | disposition home or self-care (01) ==
LOC: LAB 06:06
PROVIDERS: ATTEND Nurse Practitioner Family
DX: E78.5 Hyperlipidemia, unspecified (principal); E55.9 Vitamin D deficiency, unspecified; N39.9 Disorder of urinary system, unspecified; R73.03 Prediabetes
CPT/HCPCS: 36415; 80053; 80061; 81001; 82306; 83036; 84443; 85025; 87086

== ENCOUNTER → 2025-02-06 | Outpatient (CLI) | payer OTHER ==
[2025-02-06 07:06] LABS: Alanine Aminotransferase 13 U/L (7-40); Alkaline Phosphatase 100 U/L (46-116); Anion Gap 9 (5-15); Blood Urea Nitrogen 14 mg/dL (9-23); Calcium 9.4 mg/dL (8.7-10.4); Carbon Dioxide 27 mmol/L (20-31); Chloride 106 mmol/L (98-107); Potassium 5.0 mmol/L (3.5-5.1); Sodium 142 mmol/L (136-145); Total Protein 7.1 g/dL (5.7-8.2); Triglycerides 93 mg/dL (< 150)
[2025-02-06 07:07] LABS: Albumin 4.3 g/dL (3.2-4.8); BUN/Creatinine Ratio 16.9 (10.0-20.0); Bilirubin, Total 0.6 mg/dL (0.2-1.0); Cholesterol 193 mg/dL (< 200); HDL Cholesterol 58 mg/dL (40-59)
[2025-02-06 07:09] LABS: Glucose 106 mg/dL (74-106)
[2025-02-06 07:51] LABS: Urine Protein, UAD Negative (Negative)
== END | disposition home or self-care (01) ==
LOC: LAB 06:05
PROVIDERS: ATTEND Nurse Practitioner Family
DX: E78.5 Hyperlipidemia, unspecified (principal); E55.9 Vitamin D deficiency, unspecified; R73.03 Prediabetes; Z12.11 Encounter for screening for malignant neoplasm of colon
CPT/HCPCS: 36415; 80053; 80061; 81001; 82306; 83036; 84443; 85652